=== PATIENT | female | born 1995 ===

== ENCOUNTER 2022-10-20 14:27 | Outpatient (CLI) | payer OTHER | END 2022-10-20 18:01 | disposition home or self-care (01) | LOC: PRENATAL 14:27 | PROVIDERS: ATTEND Obstetrics & Gynecology Maternal & Fetal Medicine | DX: O36.80X0 Pregnancy with inconclusive fetal viability, not applicable or unspecified (principal); Z36.82 Encounter for antenatal screening for nuchal translucency; Z36 Encounter for antenatal screening of mother; Z3A.11 11 weeks gestation of pregnancy ==

== ENCOUNTER 2022-12-18 13:09 | Outpatient (CLI) | payer OTHER | END 2022-12-18 13:10 | disposition home or self-care (01) | LOC: PRENATAL 13:09 | PROVIDERS: ATTEND Obstetrics & Gynecology Maternal & Fetal Medicine | DX: O35.3XX0 Maternal care for (suspected) damage to fetus from viral disease in mother, not applicable or unspecified (principal); O44.00 Complete placenta previa NOS or without hemorrhage, unspecified trimester; Z3A.20 20 weeks gestation of pregnancy ==

== ENCOUNTER 2023-03-12 13:18 | Outpatient (CLI) | payer OTHER | END 2023-03-12 13:20 | disposition home or self-care (01) | LOC: PRENATAL 13:18 | PROVIDERS: ATTEND Obstetrics & Gynecology Maternal & Fetal Medicine | DX: O26.849 Uterine size-date discrepancy, unspecified trimester (principal); O36.8199 Decreased fetal movements, unspecified trimester, other fetus; Z3A.32 32 weeks gestation of pregnancy ==

== ENCOUNTER 2023-04-27 13:45 | Inpatient (IN) | payer OTHER ==
[~2023-04-27] VITALS: Ht 160 cm; Wt 98.0 kg
[2023-04-27 16:02] LABS: PH,URINE 6.5 (5.0-8.0); URINE APPEARANCE Clear; URINE BILIRRUBIN Negative (NEGATIVE); URINE BLOOD Negative; URINE COLOR Yellow; URINE GLUCOSE Negative (NEGATIVE); URINE LEUKOCYTE Moderate; URINE NITRATE Negative; URINE PROTEIN Negative (NEGATIVE)
[2023-04-27 16:05] LABS: HEMATOCRIT 36.5 % (36.0-45.00); HEMOGLOBIN 12.4 g/dL (12.0-15.00); MEAN CELL VOLUME 82.9 fL (80.00-100.00); MEAN CORPUSCULAR HEMOGLOBIN 28.2 pg (27.00-32.0); PLATELET COUNT 194 K/uL (150-450); RED BLOOD COUNT 4.41 M/uL (4.00-6.00); RED CELL DISTRIBUTION WIDTH 14.7 % (11.5-14.5)
[2023-04-27 16:06] LABS: URINE BACTERIA 476.2 uL (0.0-1933); URINE EPITHELIAL CELLS 39.7 uL (0.0-38.8); URINE WBC 82.8 uL (0.0-23.2)
[2023-04-27 16:27] LABS: INR < 0.93; PARTIAL THROMBOPLASTIN TIME 28.6 SECONDS (22.0-34.0); PROTHROMBIN TIME 9.8 SECONDS (9.0-11.5)
[2023-04-27 16:31] LABS: ALBUMIN 2.7 gm/dL (3.4-5.0); BILIRUBIN TOTAL 0.26 mg/dL (0.3-1.2); CALCIUM 8.7 mg/dL (8.5-10.1); CREATININE SERUM 0.77 mg/dL (0.55-1.02); GFR 90.61; GLOBULINA 3.3 G/DL (2.4-3.5); POTASSIUM 4.29 mEq/L (3.5-5.1)
[2023-05-01] MEDS ORDERED: RINGERS SOLUTION,LACTATED 1,000 ML IV SCH (17:00)
[2023-05-01] MEDS ORDERED: OXYTOCIN 20 UNITS/500ML RL PIGGYBAG IV ONE (17:04)
[2023-05-01] MEDS ORDERED: OXYTOCIN 500 ML IV SCH (17:15)
[2023-05-01] MEDS ORDERED: CHLORHEXIDINE GLUCONATE 120 ML BOTTLE TOP ONE ×2 (18:00→23:30)
[2023-05-01] MEDS ORDERED: PROMETHAZINE HCL 25 MG/ML AMPUL ONE (18:00)
[2023-05-01] MEDS ORDERED: ERYTHROMYCIN BASE 1 GM TUBE OP ONE ×2 (18:00→23:30)
[2023-05-01] MEDS ORDERED: OXYTOCIN 20 UNITS/1000ML RL PIGGYBAG IV ONE (18:00)
[2023-05-01 18:08] LABS: PH,URINE 6.5 (5.0-8.0); URINE APPEARANCE Cloudy; URINE BILIRRUBIN Negative (NEGATIVE); URINE BLOOD Negative; URINE COLOR Yellow; URINE GLUCOSE Negative (NEGATIVE); URINE LEUKOCYTE Large; URINE NITRATE Negative; URINE PROTEIN Negative (NEGATIVE); URINE UROBILINOGEN 0.2 E.U./dl
[2023-05-01 18:09] LABS: HEMATOCRIT 35.7 % (36.0-45.00); HEMOGLOBIN 12.3 g/dL (12.0-15.00); MEAN CELL VOLUME 83.4 fL (80.00-100.00); MEAN CORPUSCULAR HEMOGLOBIN 28.8 pg (27.00-32.0); MEAN CORPUSCULAR HGB CONC 34.6 g/dl (32.0-36.0); PLATELET COUNT 202 K/uL (150-450); RED BLOOD COUNT 4.28 M/uL (4.00-6.00); RED CELL DISTRIBUTION WIDTH 14.7 % (11.5-14.5)
[2023-05-01 18:12] LABS: URINE BACTERIA 1462.6 uL (0.0-1933); URINE EPITHELIAL CELLS 96.4 uL (0.0-38.8); URINE RBC 2.1 uL (0.0-20.8); URINE WBC 231.4 uL (0.0-23.2)
[2023-05-01] MEDS ORDERED: PROMETHAZINE HCL 50 MG/ML AMPUL IV ONE (18:15)
[2023-05-01] MEDS ORDERED: MEPERIDINE HCL/PF 50 MG/ML VIAL IV ONE (18:15)
[2023-05-01 18:30] LABS: INR < 0.93; PARTIAL THROMBOPLASTIN TIME 28.4 SECONDS (22.0-34.0); PROTHROMBIN TIME 9.7 SECONDS (9.0-11.5)
[2023-05-01 18:35] LABS: ALBUMIN 2.7 gm/dL (3.4-5.0); BILIRUBIN TOTAL 0.22 mg/dL (0.3-1.2); CREATININE SERUM 0.77 mg/dL (0.55-1.02); GFR 90.61; GLOBULINA 3.3 G/DL (2.4-3.5); POTASSIUM 4.73 mEq/L (3.5-5.1)
[2023-05-01] MEDS ORDERED: OXYTOCIN 10 UNITS/ML VIAL ONE (22:36)
[2023-05-01] MEDS ORDERED: LIDOCAINE HCL 100 MG/10ML VIAL IJ ONE (23:30)
[2023-05-01] MEDS ORDERED: ACETAMINOPHEN 500 MG GEL..CAP PO PRN (23:30)
[2023-05-01] MEDS ORDERED: OXYTOCIN 20 UNITS/1000ML RL PIGGYBAG IV SCH (23:30)
[2023-05-02 03:11] LABS: HEMATOCRIT 34.7 % (36.0-45.00); HEMOGLOBIN 11.8 g/dL (12.0-15.00); MEAN CELL VOLUME 82.7 fL (80.00-100.00); MEAN CORPUSCULAR HEMOGLOBIN 28.1 pg (27.00-32.0); PLATELET COUNT 182 K/uL (150-450); RED CELL DISTRIBUTION WIDTH 14.8 % (11.5-14.5)
[2023-05-02] MEDS ORDERED: PNV,CALCIUM 72/IRON/FOLIC ACID 1 TAB TABLET PO SCH (09:00)
== END 2023-05-03 11:51 | disposition home or self-care (01) | DRG 807 ==
LOC: OB/GYN 13:45 → LDR 05-01 16:45 → OB/GYN 05-01 16:45
PROVIDERS: ADMIT Student in an Organized Health Care Education/Training Program; ATTEND Student in an Organized Health Care Education/Training Program
PROC: 10E0XZZ Delivery of Products of Conception, External Approach (ICD-10-PCS; principal; 2023-05-01)
PROC: 0W8NXZZ Division of Female Perineum, External Approach (ICD-10-PCS; 2023-05-01)
PROC: 4A1HXCZ Monitoring of Products of Conception, Cardiac Rate, External Approach (ICD-10-PCS; 2023-05-01)
DX: O80 Encounter for full-term uncomplicated delivery (principal); Z37.0 Single live birth; Z3A.39 39 weeks gestation of pregnancy; Z20.822 Contact with and (suspected) exposure to COVID-19